=== PATIENT | female | born 1950 | race African-American/Black ===

== ENCOUNTER 2017-09-04 17:57 | Emergency (ER) | payer OTHER ==
[~2017-09-04] VITALS: Ht 165.1 cm; Wt 92.0 kg
[~2017-09-04 17:57] MED LIST: LISI10TA5 PO; LOP25 PO; PENT400T2 PO; SIMV20TA6 PO; [UNRECOGNIZED DRUG - OTHER]
[2017-09-04 18:14] VITALS: BP 134/83
[2017-09-04 19:22] LABS: BASOPHILS % 0.6 % (0.0-2.0); HEMOGLOBIN. 11.8 g/dL (12.0-16.0); LYMPHOCYTES % 27.1 % (20.0-50.0); MEAN CORPUSCULAR HEMOGLOBIN 25.6 pg (28.0-32.0); MEAN CORPUSCULAR VOLUME 75.9 fL (81.0-99.0); MEAN PLATELET VOLUME 7.8 fl (7.4-10.4); NEUTROPHILS % 59.3 % (40.0-76.0); PLATELET 439 x1000/uL (130-400); RED BLOOD CELL COUNT 4.61 mill/uL (4.2-5.4); RED CELL DISTRIBUTION WIDTH 17.2 % (11.6-14.6)
[2017-09-04 19:27] LABS: PROTHROMBIN TIME 10.9 sec (9.4-11.6)
[2017-09-04 19:30] LABS: CHLORIDE 105 mEq/L (98-107)
[2017-09-04] MEDS ORDERED: ONDANSETRON HCL 4MG/2ML VIAL IV STA (21:51)
[2017-09-04] MEDS ORDERED: SODIUM CHLORIDE 0.9% 1,000 ML IV ONE (21:51)
[2017-09-04] MEDS ORDERED: MORPHINE SULFATE 4 MG/ML CPJ (NOT FOR IM USE) IV STA (21:51)
[2017-09-04] MEDS ORDERED: NITROGLYCERIN OINT 1GM/INCH UDPKT TD ONE (22:00)
[2017-09-04] MEDS ORDERED: ASPIRIN 81MG TABLET PO ONE (22:00)
== END 2017-09-04 22:50 | disposition left against medical advice (07) ==
LOC: ER 19:01 → CANBEDREQ 09-05 08:53
DX: D50.9 Iron deficiency anemia, unspecified (principal); R10.9 Unspecified abdominal pain; I10 Essential (primary) hypertension; E78.00 Pure hypercholesterolemia, unspecified
CPT/HCPCS: 36415; 71045; 80053; 83690; 83880; 84484; 85025; 85610; 93005; 99285; J7030